=== PATIENT | female | born 1960 | race Caucasian/White ===

== ENCOUNTER 2018-03-11 09:17 | Inpatient (IN) | payer OTHER ==
[~2018-03-11] VITALS: Ht 160 cm; Wt 68.0 kg
[2018-04-12] MEDS ORDERED: OXYC1TAB9 PO (08:22)
[2018-04-12] MEDS ORDERED: INTESTINEX680 M1 PO (08:22)
[2018-04-12] MEDS ORDERED: PEPCID AC20 MG PO (08:23)
[2018-04-12] MEDS ORDERED: FLAGYL500MG PO (08:23)
== END 2018-04-12 16:35 | disposition home or self-care (01) | DRG 330 ==
LOC: SURH 03-21 07:00 → O/R 04-08 05:55 → SURH 04-08 11:20 → SURG 04-10 17:33
PROVIDERS: Surgery
PROC: 0DJD8ZZ Inspection of Lower Intestinal Tract, Via Natural or Artificial Opening Endoscopic (ICD-10-PCS; 2018-04-08)
PROC: 0DTN4ZZ Resection of Sigmoid Colon, Percutaneous Endoscopic Approach (ICD-10-PCS; principal; 2018-04-08 18:15)
DX: K57.20 Diverticulitis of large intestine with perforation and abscess without bleeding (principal); D62 Acute posthemorrhagic anemia; I11.9 Hypertensive heart disease without heart failure; R50.82 Postprocedural fever